=== PATIENT | female | born 1945 | race Caucasian/White ===

== ENCOUNTER 2020-10-15 03:32 | Inpatient (IN) | payer MEDICARE ==
[2020-10-15] MEDS ORDERED: Digoxin 0.5 MG/2 ML AMP ONE (03:47)
[2020-10-15 04:27] LABS: Hemoglobin 12.4 g/dL (12.0-16.0); Mean Corpuscular HGB CONC 32.1 g/dL (32.0-36.0); Mean Corpuscular Hemoglobin 26.4 pg (27.0-31.0); Mean Corpuscular Volume 82.1 fL (78.0-98.0); Mean Platelet Volume 8.2 fL (7.4-10.4); Platelet Count 232 thou/uL (130-400); RBC Distribution Width 15.3 % (11.5-14.5); Red Blood Cell (RBC) Count 4.72 mill/uL (4.20-5.40); White Blood Cell (WBC) Count 7.8 thou/uL (4.8-10.8)
[2020-10-15 04:40] LABS: ALT (SGPT) 47 U/L (8-55); AST (SGOT) 71 U/L (5-34); Albumin 3.5 g/dL (3.4-4.8); Alkaline Phosphatase 121 U/L (40-110); Anion Gap 13 mmol/L (10-20); BUN (Urea Nitrogen) 16 mg/dL (9.8-20.1); Bilirubin, Total 0.3 mg/dL (0.2-1.2); Calc. Creatinine Clearance 0 mL/min (70-130); Calcium 8.8 mg/dL (7.8-10.44); Carbon Dioxide 24 mmol/L (23-31); Chloride 103 mmol/L (98-107); Glucose 245 mg/dL (83-110); Potassium 3.1 mmol/L (3.5-5.1); Protein, Total 7.5 g/dL (5.8-8.1); Sodium 137 mmol/L (136-145)
[2020-10-15 04:50] LABS: Band 18 % (5-11); Eosinophils 1 % (0-10); Lymphocytes 8 % (21-51); MDiff Complete? YES; Monocytes 12 % (0-10); Neutrophil 61 % (42-75)
[2020-10-15 05:02] LABS: CKMB 0.7 ng/mL (0-6.6)
[2020-10-15 05:43] LABS: SARS-CoV-2 NAA Rapid Test DETECTED (NotDetected)
[2020-10-15] MEDS ORDERED: Aspirin Chewable 81 MG TAB ONE (05:52)
[2020-10-15 07:40] LABS: Troponin I 0.054 ng/mL (< 0.028)
[2020-10-15] MEDS ORDERED: Electrolyte Replacement Protocol 1 EACH FS SCH (08:30)
[2020-10-15] MEDS ORDERED: Dextrose 50% Abboject 50 ML SYRINGE SLOW IVP PRN (08:32)
[2020-10-15] MEDS ORDERED: Dextrose 5% in Water 1,000 ML IV PRN (08:32)
[2020-10-15 08:40] LABS: Magnesium 1.5 mg/dL (1.6-2.6); Phosphorus 2.8 mg/dL (2.3-4.7)
[2020-10-15] MEDS ORDERED: Ondansetron PF 4 MG/2 ML Vial IVP PRN (08:44)
[2020-10-15] MEDS ORDERED: Calcium Carbonate 500 MG ChewTAB PO PRN (08:44)
[2020-10-15] MEDS ORDERED: Ondansetron ODT 4 MG TAB PO PRN (08:44)
[2020-10-15] MEDS ORDERED: Communication Order-Pharmacy FS SCH (08:47)
[2020-10-15] MEDS ORDERED: Aspirin 81 mg Enteric Coated Tablet PO SCH (09:00)
[2020-10-15] MEDS ORDERED: Potassium Chloride 20 MEQ TAB PO SCH ×2 (09:00→22:30)
[2020-10-15] MEDS ORDERED: Enoxaparin Sodium 80 MG/0.8 ML SYRINGE SC SCH (09:00)
[2020-10-15] MEDS ORDERED: Magnesium Sulfate 4 GM in Sodium Chloride 0.9% 250 ML 250 ML IVPB SCH (09:00)
[2020-10-15 09:27] LABS: Ferritin 53.28 ng/mL (10-291); Thyroid Stimulating Hormone 0.9026 uIU/mL (0.35-4.94)
[2020-10-15] MEDS: Famotidine 20 MG TAB PO SCH ×2 (10:02→20:52)
[2020-10-15] MEDS: Enoxaparin Sodium 100 MG/ML SYRINGE SC SCH ×2 (10:03→20:52)
[2020-10-15 10:46] LABS: Troponin I 0.076 ng/mL (< 0.028)
[2020-10-15] MEDS: GUAIFENESIN SF SOLN 200 MG/10 ML UDCUP PO PRN ×3 (11:00→20:52)
[2020-10-15] MEDS ORDERED: cloNIDine 0.1 MG TAB PO SCH (11:00)
[2020-10-15] MEDS ORDERED: Iopamidol-370 76% 500 ML 1 ML ONE (13:26)
[2020-10-15] MEDS: Benzonatate 100 MG CAP PO PRN ×2 (14:04→20:52)
[2020-10-15] MEDS: Insulin Regular 300 UNITS/3 ML VIAL SC PRN ×3 (14:04→20:59)
[2020-10-15] MEDS: Acetaminophen 325 MG TAB PO PRN (16:11)
[2020-10-15] MEDS: guaiFENesin ER 600 MG TAB PO SCH (20:52)
[2020-10-15] MEDS: cloNIDine 0.1 MG TAB PO SCH (20:52)
[2020-10-15] MEDS ORDERED: NS 0.9% w/ 40 MEQ KCL 500 ML IV SCH (22:30)
[2020-10-15] MEDS: Melatonin 3 MG TAB PO PRN (23:34)
[2020-10-15] MEDS: Potassium Chloride 20 MEQ in Premix Bag 1 BAG IVPB SCH (23:36)
[2020-10-16] MEDS: Potassium Chloride 20 MEQ in Premix Bag 1 BAG IVPB SCH (03:30)
[2020-10-16] MEDS: GUAIFENESIN SF SOLN 200 MG/10 ML UDCUP PO PRN ×4 (03:55→20:21)
[2020-10-16 05:36] LABS: Hemoglobin 12.7 g/dL (12.0-16.0); Mean Corpuscular HGB CONC 31.9 g/dL (32.0-36.0); Mean Corpuscular Hemoglobin 26.4 pg (27.0-31.0); Mean Corpuscular Volume 82.9 fL (78.0-98.0); Mean Platelet Volume 8.5 fL (7.4-10.4); Platelet Count 193 thou/uL (130-400); Red Blood Cell (RBC) Count 4.79 mill/uL (4.20-5.40); White Blood Cell (WBC) Count 5.8 thou/uL (4.8-10.8)
[2020-10-16 05:49] LABS: Anion Gap 12 mmol/L (10-20); BUN (Urea Nitrogen) 12 mg/dL (9.8-20.1); Calc. Creatinine Clearance 70 mL/min (70-130); Calcium 8.3 mg/dL (7.8-10.44); Carbon Dioxide 21 mmol/L (23-31); Chloride 104 mmol/L (98-107); Glucose 188 mg/dL (83-110); Magnesium 1.6 mg/dL (1.6-2.6); Potassium 3.8 mmol/L (3.5-5.1); Sodium 133 mmol/L (136-145)
[2020-10-16 06:54] LABS: Band 10 % (5-11); Eosinophils 3 % (0-10); Lymphocytes 25 % (21-51); MDiff Complete? YES; Monocytes 12 % (0-10); Neutrophil 49 % (42-75)
[2020-10-16] MEDS ORDERED: Magnesium 2 GM/50 ML 2 GM in Premix Bag 1 BAG IVPB SCH (07:00)
[2020-10-16] MEDS: cloNIDine 0.1 MG TAB PO SCH ×2 (08:24→20:15)
[2020-10-16] MEDS: Ascorbic Acid 500 mg Chewable Tablet PO SCH (08:25)
[2020-10-16] MEDS: Famotidine 20 MG TAB PO SCH ×2 (08:25→20:15)
[2020-10-16] MEDS: glipiZIDE 5 MG TAB PO SCH (08:25)
[2020-10-16] MEDS: Enoxaparin Sodium 100 MG/ML SYRINGE SC SCH (08:25)
[2020-10-16] MEDS: guaiFENesin ER 600 MG TAB PO SCH ×2 (08:25→20:15)
[2020-10-16] MEDS: Cholecalciferol 1,000 UNITS (25 MCG) TAB PO SCH (08:25)
[2020-10-16] MEDS: Aspirin 81 mg Enteric Coated Tablet PO SCH (08:25)
[2020-10-16] MEDS ORDERED: Non-Formulary Item 1 EACH (Hydrochlorothiazide [Hydrochlorothiazide] 12.5 MG Capsule) PO SCH (09:00)
[2020-10-16] MEDS ORDERED: Non-Formulary Item 1 EACH (Losartan Potassium [Cozaar] 100 MG Tablet) PO SCH (09:00)
[2020-10-16] MEDS ORDERED: Non-Formulary Item 1 EACH (Omeprazole [Omeprazole] 20 MG Capsule.Dr) PO SCH (09:00)
[2020-10-16] MEDS ORDERED: REMDESIVIR 200 MG in Sodium Chloride 0.9% 250 ML 210 ML IV SCH (11:30)
[2020-10-16] MEDS: Insulin Regular 300 UNITS/3 ML VIAL SC PRN ×3 (11:38→20:21)
[2020-10-16] MEDS: Acetaminophen 325 MG TAB PO PRN (16:22)
[2020-10-16] MEDS: Apixaban 5 MG TAB PO SCH (20:15)
[2020-10-16] MEDS: Zinc Sulfate 220 MG CAP PO SCH (20:15)
[2020-10-16] MEDS: Melatonin 3 MG TAB PO PRN (22:20)
[2020-10-17 05:54] LABS: Magnesium 1.7 mg/dL (1.6-2.6)
[2020-10-17] MEDS: Insulin Regular 300 UNITS/3 ML VIAL SC PRN ×4 (06:40→20:35)
[2020-10-17] MEDS ORDERED: Magnesium 2 GM/50 ML 2 GM in Premix Bag 1 BAG IVPB SCH (06:45)
[2020-10-17] MEDS: GUAIFENESIN SF SOLN 200 MG/10 ML UDCUP PO PRN ×2 (06:49→20:28)
[2020-10-17] MEDS: Ascorbic Acid 500 mg Chewable Tablet PO SCH (07:55)
[2020-10-17] MEDS: Apixaban 5 MG TAB PO SCH (07:56)
[2020-10-17] MEDS: glipiZIDE 5 MG TAB PO SCH (07:56)
[2020-10-17] MEDS: Cholecalciferol 1,000 UNITS (25 MCG) TAB PO SCH (07:56)
[2020-10-17] MEDS: Aspirin 81 mg Enteric Coated Tablet PO SCH (07:56)
[2020-10-17] MEDS: cloNIDine 0.1 MG TAB PO SCH ×2 (07:56→20:21)
[2020-10-17] MEDS: guaiFENesin ER 600 MG TAB PO SCH ×2 (07:56→20:22)
[2020-10-17] MEDS: Famotidine 20 MG TAB PO SCH ×2 (07:56→20:23)
[2020-10-17 11:13] LABS: Anion Gap 11 mmol/L (10-20); BUN (Urea Nitrogen) 14 mg/dL (9.8-20.1); Calc. Creatinine Clearance 66 mL/min (70-130); Calcium 8.5 mg/dL (7.8-10.44); Carbon Dioxide 22 mmol/L (23-31); Chloride 106 mmol/L (98-107); Glucose 262 mg/dL (83-110); Magnesium 2.1 mg/dL (1.6-2.6); Potassium 3.4 mmol/L (3.5-5.1); Sodium 136 mmol/L (136-145)
[2020-10-17 11:20] LABS: Troponin I 0.026 ng/mL (< 0.028)
[2020-10-17] MEDS ORDERED: REMDESIVIR 100 MG in Sodium Chloride 0.9% 250 ML 230 ML IV SCH (11:30)
[2020-10-17] MEDS ORDERED: Potassium Chloride 20 MEQ TAB PO SCH (12:15)
[2020-10-17] MEDS: Zinc Sulfate 220 MG CAP PO SCH (20:21)
[2020-10-17] MEDS: Benzonatate 100 MG CAP PO PRN (21:37)
[2020-10-17] MEDS: Melatonin 3 MG TAB PO PRN (21:37)
[2020-10-17] MEDS: Acetaminophen 325 MG TAB PO PRN (21:50)
[2020-10-18 04:17] LABS: Magnesium 1.6 mg/dL (1.6-2.6)
[2020-10-18 05:54] VITALS: BMI 35.9
[2020-10-18] MEDS: Insulin Regular 300 UNITS/3 ML VIAL SC PRN ×3 (05:59→20:28)
[2020-10-18] MEDS ORDERED: Magnesium 2 GM/50 ML 2 GM in Premix Bag 1 BAG IVPB SCH (07:15)
[2020-10-18] MEDS: glipiZIDE 5 MG TAB PO SCH (07:39)
[2020-10-18] MEDS: guaiFENesin ER 600 MG TAB PO SCH ×2 (07:40→20:26)
[2020-10-18] MEDS: cloNIDine 0.1 MG TAB PO SCH ×2 (07:40→20:27)
[2020-10-18] MEDS: Ascorbic Acid 500 mg Chewable Tablet PO SCH (07:40)
[2020-10-18] MEDS: Famotidine 20 MG TAB PO SCH ×2 (07:40→20:27)
[2020-10-18] MEDS: Cholecalciferol 1,000 UNITS (25 MCG) TAB PO SCH (07:40)
[2020-10-18] MEDS: Aspirin 81 mg Enteric Coated Tablet PO SCH (07:40)
[2020-10-18 10:02] LABS: #Eosinphils 0.1 thou/uL (0.0-0.7); #Monocytes 0.6 thou/uL (0.11-0.59); #Neutrophils 3.2 thou/uL (1.40-6.50); %Basophils 0.4 % (0.0-1.0); %Eosinophils 1.3 % (0.0-10.0); %Lymphocytes 33.8 % (21.0-51.0); %Monocytes 9.7 % (0.0-10.0); %Neutrophils 54.9 % (42.0-75.0); Mean Corpuscular HGB CONC 31.2 g/dL (32.0-36.0); Mean Corpuscular Hemoglobin 26.3 pg (27.0-31.0); Mean Corpuscular Volume 84.1 fL (78.0-98.0); Mean Platelet Volume 8.8 fL (7.4-10.4); Platelet Count 177 thou/uL (130-400); RBC Distribution Width 15.3 % (11.5-14.5); Red Blood Cell (RBC) Count 4.95 mill/uL (4.20-5.40); White Blood Cell (WBC) Count 5.9 thou/uL (4.8-10.8)
[2020-10-18 10:14] LABS: Anion Gap 11 mmol/L (10-20); BUN (Urea Nitrogen) 13 mg/dL (9.8-20.1); Calc. Creatinine Clearance 69 mL/min (70-130); Calcium 8.7 mg/dL (7.8-10.44); Carbon Dioxide 23 mmol/L (23-31); Chloride 106 mmol/L (98-107); Glucose 215 mg/dL (83-110); Potassium 3.8 mmol/L (3.5-5.1); Sodium 136 mmol/L (136-145)
[2020-10-18] MEDS: Zinc Sulfate 220 MG CAP PO SCH (20:26)
[2020-10-18] MEDS: Benzonatate 100 MG CAP PO PRN (20:27)
[2020-10-18] MEDS: Melatonin 3 MG TAB PO PRN (20:27)
[2020-10-18] MEDS: GUAIFENESIN SF SOLN 200 MG/10 ML UDCUP PO PRN (20:27)
[2020-10-18] MEDS: Acetaminophen 325 MG TAB PO PRN (20:39)
[2020-10-19] MEDS: GUAIFENESIN SF SOLN 200 MG/10 ML UDCUP PO PRN ×2 (00:03→18:12)
[2020-10-19 04:17] LABS: Anion Gap 11 mmol/L (10-20); BUN (Urea Nitrogen) 10 mg/dL (9.8-20.1); Calc. Creatinine Clearance 73 mL/min (70-130); Calcium 8.5 mg/dL (7.8-10.44); Carbon Dioxide 26 mmol/L (23-31); Chloride 105 mmol/L (98-107); Glucose 189 mg/dL (83-110); Magnesium 1.7 mg/dL (1.6-2.6); Potassium 3.9 mmol/L (3.5-5.1); Sodium 138 mmol/L (136-145)
[2020-10-19 04:37] LABS: Band 7 % (5-11); Hemoglobin 12.2 g/dL (12.0-16.0); Lymphocytes 53 % (21-51); MDiff Complete? YES; Mean Corpuscular Hemoglobin 26.5 pg (27.0-31.0); Mean Platelet Volume 9.1 fL (7.4-10.4); Monocytes 5 % (0-10); Neutrophil 35 % (42-75); Platelet Count 141 thou/uL (130-400); Platelet Morphology Comment Appears Adequate; RBC Distribution Width 15.4 % (11.5-14.5); RBC Morphology Normal; Red Blood Cell (RBC) Count 4.59 mill/uL (4.20-5.40); White Blood Cell (WBC) Count 4.8 thou/uL (4.8-10.8)
[2020-10-19] MEDS: Insulin Regular 300 UNITS/3 ML VIAL SC PRN ×2 (06:14→16:54)
[2020-10-19] MEDS ORDERED: Magnesium 2 GM/50 ML 2 GM in Premix Bag 1 BAG IVPB SCH (06:30)
[2020-10-19] MEDS: glipiZIDE 5 MG TAB PO SCH (08:14)
[2020-10-19] MEDS: Ascorbic Acid 500 mg Chewable Tablet PO SCH (08:15)
[2020-10-19] MEDS: guaiFENesin ER 600 MG TAB PO SCH ×2 (08:15→19:46)
[2020-10-19] MEDS: Famotidine 20 MG TAB PO SCH ×2 (08:15→19:46)
[2020-10-19] MEDS: Cholecalciferol 1,000 UNITS (25 MCG) TAB PO SCH (08:15)
[2020-10-19] MEDS: cloNIDine 0.1 MG TAB PO SCH ×2 (08:15→19:45)
[2020-10-19] MEDS: Aspirin 81 mg Enteric Coated Tablet PO SCH (08:15)
[2020-10-19] MEDS ORDERED: CEFAZOLIN 1 GM VIAL ONE (10:02)
[2020-10-19] MEDS ORDERED: Gentamicin 80 MG/2 ML VIAL ONE (10:02)
[2020-10-19] MEDS ORDERED: Lidocaine 1% (PF) 30 ML VIAL ONE ×2 (10:02→11:12)
[2020-10-19] MEDS ORDERED: Fentanyl 100 MCG/2 ML VIAL ONE (10:50)
[2020-10-19] MEDS ORDERED: Midazolam HCl 2 mg/2 ml Vial ONE ×2 (10:51→11:13)
[2020-10-19] MEDS ORDERED: Acetaminophen/Codeine 30-300mg Tablet PO PRN (12:47)
[2020-10-19] MEDS: cloNIDine 0.1 MG TAB PO PRN (18:11)
[2020-10-19] MEDS: Zinc Sulfate 220 MG CAP PO SCH (19:46)
[2020-10-20] MEDS: Insulin Regular 300 UNITS/3 ML VIAL SC PRN ×4 (05:39→21:22)
[2020-10-20] MEDS: Aspirin 81 mg Enteric Coated Tablet PO SCH (08:10)
[2020-10-20] MEDS: Ascorbic Acid 500 mg Chewable Tablet PO SCH (08:10)
[2020-10-20] MEDS: glipiZIDE 5 MG TAB PO SCH (08:10)
[2020-10-20] MEDS: guaiFENesin ER 600 MG TAB PO SCH ×2 (08:11→20:46)
[2020-10-20] MEDS: cloNIDine 0.1 MG TAB PO SCH ×2 (08:11→20:45)
[2020-10-20] MEDS: Cholecalciferol 1,000 UNITS (25 MCG) TAB PO SCH (08:11)
[2020-10-20] MEDS: Famotidine 20 MG TAB PO SCH ×2 (08:11→20:46)
[2020-10-20 13:54] LABS: Magnesium 1.5 mg/dL (1.6-2.6)
[2020-10-20] MEDS ORDERED: Magnesium 2 GM/50 ML 2 GM in Premix Bag 1 BAG IVPB SCH (14:15)
[2020-10-20] MEDS: cloNIDine 0.1 MG TAB PO PRN (15:22)
[2020-10-20] MEDS ORDERED: Loperamide HCl 2 MG CAP PO SCH (18:15)
[2020-10-20] MEDS: Zinc Sulfate 220 MG CAP PO SCH (20:44)
[2020-10-21 06:20] LABS: Magnesium 1.7 mg/dL (1.6-2.6)
[2020-10-21] MEDS ORDERED: Magnesium 2 GM/50 ML 2 GM in Premix Bag 1 BAG IVPB SCH (06:45)
[2020-10-21] MEDS ORDERED: Amlodipine 5 MG TAB PO SCH (09:00)
[2020-10-21] MEDS ORDERED: Losartan 25 MG TAB PO SCH (09:00)
[2020-10-21] MEDS: glipiZIDE 5 MG TAB PO SCH (09:26)
[2020-10-21] MEDS: Aspirin 81 mg Enteric Coated Tablet PO SCH (09:26)
[2020-10-21] MEDS: cloNIDine 0.1 MG TAB PO PRN (09:26)
[2020-10-21] MEDS: Ascorbic Acid 500 mg Chewable Tablet PO SCH (09:27)
[2020-10-21] MEDS: Famotidine 20 MG TAB PO SCH (09:27)
[2020-10-21] MEDS: guaiFENesin ER 600 MG TAB PO SCH (09:28)
[2020-10-21] MEDS: Cholecalciferol 1,000 UNITS (25 MCG) TAB PO SCH (09:28)
[2020-10-21 09:34] LABS: #Eosinphils 0.1 thou/uL (0.0-0.7); #Lymphocytes 2.6 thou/uL (1.20-3.40); #Monocytes 0.9 thou/uL (0.11-0.59); #Neutrophils 2.5 thou/uL (1.40-6.50); %Eosinophils 0.9 % (0.0-10.0); %Lymphocytes 42.9 % (21.0-51.0); %Monocytes 14.8 % (0.0-10.0); %Neutrophils 41.4 % (42.0-75.0); Hemoglobin 11.8 g/dL (12.0-16.0); Mean Corpuscular HGB CONC 31.1 g/dL (32.0-36.0); Mean Corpuscular Hemoglobin 25.7 pg (27.0-31.0); Mean Corpuscular Volume 82.5 fL (78.0-98.0); Mean Platelet Volume 8.3 fL (7.4-10.4); Platelet Count 162 thou/uL (130-400); RBC Distribution Width 15.7 % (11.5-14.5); Red Blood Cell (RBC) Count 4.58 mill/uL (4.20-5.40); White Blood Cell (WBC) Count 6.1 thou/uL (4.8-10.8)
[2020-10-21 09:53] LABS: Anion Gap 12 mmol/L (10-20); BUN (Urea Nitrogen) 7 mg/dL (9.8-20.1); Calc. Creatinine Clearance 90 mL/min (70-130); Calcium 8.7 mg/dL (7.8-10.44); Carbon Dioxide 24 mmol/L (23-31); Chloride 106 mmol/L (98-107); Glucose 199 mg/dL (83-110); Potassium 3.8 mmol/L (3.5-5.1); Sodium 138 mmol/L (136-145)
[2020-10-21] MEDS: cloNIDine 0.1 MG TAB PO SCH (10:10)
[2020-10-21] MEDS ORDERED: Apixaban 5 MG TAB PO SCH ×2 (10:15→21:00)
[2020-10-21] MEDS: Insulin Regular 300 UNITS/3 ML VIAL SC PRN (11:16)
[2020-10-21 12:22] VITALS: BP 134/63; TEMP 98.7
== END 2020-10-21 14:55 | disposition home health service (06) | DRG 983 ==
LOC: ERS 03:32 → 2SW 05:57 → IMCU/EMU 10-17 11:49 → 2SW 10-19 17:45
PROVIDERS: ADMIT Internal Medicine; ATTEND Internal Medicine
PROC: 8E0ZXY6 Isolation (ICD-10-PCS; 2020-10-15)
PROC: XW033E5 Introduction of Remdesivir Anti-infective into Peripheral Vein, Percutaneous Approach, New Technology Group 5 (ICD-10-PCS; 2020-10-16)
PROC: 0JH606Z Insertion of Pacemaker, Dual Chamber into Chest Subcutaneous Tissue and Fascia, Open Approach (ICD-10-PCS; principal; 2020-10-19)
PROC: 02HK3JZ Insertion of Pacemaker Lead into Right Ventricle, Percutaneous Approach (ICD-10-PCS; 2020-10-19)
PROC: 02H63JZ Insertion of Pacemaker Lead into Right Atrium, Percutaneous Approach (ICD-10-PCS; 2020-10-19)
DX: U07.1 COVID-19 (principal); I48.0 Paroxysmal atrial fibrillation; E78.5 Hyperlipidemia, unspecified; K21.9 Gastro-esophageal reflux disease without esophagitis; I44.7 Left bundle-branch block, unspecified; R19.7 Diarrhea, unspecified; R11.2 Nausea with vomiting, unspecified; E83.42 Hypomagnesemia; E87.6 Hypokalemia; E11.22 Type 2 diabetes mellitus with diabetic chronic kidney disease; I12.9 Hypertensive chronic kidney disease with stage 1 through stage 4 chronic kidney disease, or unspecified chronic kidney disease; N18.30 Chronic kidney disease, stage 3 unspecified; I49.5 Sick sinus syndrome; Z79.899 Other long term (current) drug therapy; Z90.49 Acquired absence of other specified parts of digestive tract; Z79.84 Long term (current) use of oral hypoglycemic drugs; Z98.890 Other specified postprocedural states; Z83.3 Family history of diabetes mellitus; Z82.3 Family history of stroke
CPT/HCPCS: 0240U; 33208; 36415; 36416; 71045; 71275; 80048; 80053; 82553; 82728; 83605; 83735; 83880; 84100; 84443; 84484; 85025; 86140; 87040; 87324; 87449; 93005; 93010; 93306; 96374; 97139; 99152; 99153; C1785; C1898; J0690; J1160; J1580; J1650; J1815; J2001; J2250; J2405; J3010; J3475; J3480; J7050; Q9967